=== PATIENT | female | born 1940 | race Caucasian/White ===

== ENCOUNTER 2017-07-25 19:31 | Inpatient (IN) | payer MEDICARE, BC ==
[~2017-07-25] VITALS: Ht 157.5 cm; Wt 50.0 kg
[2017-07-25 21:00] LABS: APPEARANCE,URINE Clear (CLEAR); BILIRUBIN,URINE Negative (NEGATIVE); COLOR,URINE Yellow (YELLOW); GLUCOSE, URINE (UA) Negative (NEGATIVE); KETONES,URINE Negative (NEGATIVE); LEUKOCYTE ESTERASE ,URINE Negative (NEGATIVE); NITRATE,URINE Negative (NEGATIVE); OCCULT BLOOD,URINE Negative (NEGATIVE); PH,URINE 5.5 (5.0-8.0); PROTEIN,URINE Negative (NEGATIVE)
[2017-07-25 21:07] LABS: AMPHET/METH SCREEN,URINE NEGATIVE (NEGATIVE); BARBITURATE SCREEN, URINE NEGATIVE (NEGATIVE); BENZODIAZEPINES SCREEN,URINE NEGATIVE (NEGATIVE); CANNABINOID SCREEN,URINE NEGATIVE (NEGATIVE); COCAINE SCREEN,URINE NEGATIVE (NEGATIVE); OPIATE SCREEN,URINE NEGATIVE (NEGATIVE); PHENCYCLIDINE SCREEN,URINE NEGATIVE (NEGATIVE)
[2017-07-25 21:39] LABS: BASOPHILS % (AUTO) 1.2 % (0.0-5.0); EOSINOPHILS % (AUTO) 4.3 % (0.0-8.0); HEMATOCRIT 32.9 % (36-48); LYMPHOCYTES % (AUTO) 24.2 % (21.0-51.0); MEAN CORPUSCULAR HEMOGLOBIN 32.6 pg (27.0-33.0); MEAN CORPUSCULAR HGB CONC 34.1 g/dL (32.0-36.0); MEAN CORPUSCULAR VOLUME 95.6 fL (79-99); MONOCYTES % (AUTO) 9.8 % (3.0-13.0); NEUTROPHILS % (AUTO) 60.5 % (40.0-77.0); PLATELET COUNT (AUTO) 453 K/uL (130-400); RED BLOOD CELL COUNT(AUTO) 3.44 MIL/uL (4.00-5.50); RED CELL DISTRIBUTION WIDTH 12.8 % (11.0-15.5)
[2017-07-25 21:55] LABS: CREATININE 0.9 mg/dL (0.5-1.5); POTASSIUM 4.4 mmol/L (3.5-5.1)
[2017-07-25 22:08] LABS: ALBUMIN 3.2 g/dL (3.5-5.0); BILIRUBIN,TOTAL 0.4 mg/dL (0.2-1.0); CREATINE KINASE MB 1.2 ng/mL (0.5-3.6); TOTAL PROTEIN, SERUM 6.3 g/dL (6.0-8.3)
[2017-07-25 22:21] LABS: INR 0.97 (0.85-1.15); PARTIAL THROMBOPLASTIN TIME 26.6 SEC (26.3-35.5); PROTHROMBIN TIME 10.2 SEC (9.6-11.6)
[2017-07-25] MEDS ORDERED: ENOXAPARIN SODIUM 60 MG/0.6 ML SQ ONE (23:04)
[2017-07-25] MEDS ORDERED: METOPROLOL TARTRATE 25 MG TAB ONE (23:05)
[2017-07-25] MEDS ORDERED: IOPAMIDOL-370 75 ML VIAL IV ONE (23:25)
[2017-07-26] MEDS ORDERED: ENOXAPARIN SODIUM 60 MG/0.6 ML SQ SCH ×2 (00:15→12:00)
[2017-07-26 01:35] VITALS: BP 151/80
[2017-07-26] MEDS ORDERED: HYDRALAZINE HCL 20 MG/ML VIAL IV PRN (02:00)
[2017-07-26] MEDS ORDERED: POTASSIUM CHLORIDE 20 MEQ ERTAB PO PRN (02:00)
[2017-07-26] MEDS ORDERED: NITROGLYCERIN 1GM/1 INCH PACKET TD SCH ×2 (02:00→09:34)
[2017-07-26] MEDS ORDERED: POTASSIUM CHLORIDE 20MEQ/100ML 100 ML IV PRN (02:00)
[2017-07-26] MEDS ORDERED: LIDOCAINE HCL-MPF 1% 2ML VIAL IVP PRN (02:00)
[2017-07-26] MEDS ORDERED: NITROGLYCERIN 0.4 MG SL TAB SL PRN (02:00)
[2017-07-26] MEDS ORDERED: POTASSIUM CHLORIDE 10% ELIXIR 20 MEQ/15 ML UDCUP PO PRN (02:00)
[2017-07-26] MEDS ORDERED: ACETAMINOPHEN 325 MG TAB PO PRN ×2 (02:00)
[2017-07-26] MEDS ORDERED: ONDANSETRON HCL MDV 20ML 2 MG/ML VIAL IV PRN (02:00)
[2017-07-26] MEDS ORDERED: CITA40TA6 PO (02:31)
[2017-07-26] MEDS ORDERED: ATEN25TA PO (02:31)
[2017-07-26] MEDS ORDERED: SIMV40TA59 PO (02:31)
[2017-07-26] MEDS ORDERED: AMLO5TAB2 PO (02:31)
[2017-07-26] MEDS ORDERED: LOSA50TA37 PO (02:31)
[2017-07-26] MEDS ORDERED: ASPI-1181 PO (02:31)
[2017-07-26] MEDS ORDERED: METO10TA3 PO (02:31)
[2017-07-26] MEDS ORDERED: TRAZ-187 PO (02:31)
[2017-07-26] MEDS ORDERED: LEVO88TA7 PO (02:31)
[2017-07-26] MEDS ORDERED: PANT40TA25 PO (02:31)
[2017-07-26 03:42] VITALS: BP 140/70
[2017-07-26 04:31] LABS: CREATINE KINASE, TOTAL 67 U/L (21-232); MYOGLOBIN 38 ng/mL (10-92); TROPONIN I < 0.04 ng/mL (0.00-0.06)
[2017-07-26 07:00] VITALS: BP 148/48
[2017-07-26] MEDS ORDERED: METOPROLOL TARTRATE 25 MG TAB PO SCH ×2 (09:00)
[2017-07-26] MEDS ORDERED: ASPIRIN 325 MG TABLET PO SCH (09:00)
[2017-07-26] MEDS ORDERED: FAMOTIDINE 20MG TAB 20 MG TAB PO SCH (09:00)
[2017-07-26 10:32] LABS: CREATINE KINASE, TOTAL 59 U/L (21-232); MYOGLOBIN 35 ng/mL (10-92); TROPONIN I < 0.04 ng/mL (0.00-0.06)
[2017-07-26] MEDS ORDERED: ATORVASTATIN CALCIUM 20 MG TABLET PO SCH (21:00)
[2017-07-27] MEDS ORDERED: LEVOTHYROXINE 88 MCG TABLET PO SCH (09:00)
[2017-07-27] MEDS ORDERED: AMLODIPINE BESYLATE 5 MG TAB PO SCH (09:00)
== END 2017-07-26 11:50 | disposition short-term general hospital (02) | DRG 66 ==
LOC: EDH 19:31 → EDHIP 22:35 → 2AH 07-26 01:43
PROVIDERS: ADMIT Family Medicine; ATTEND Family Medicine
DX: I63.9 Cerebral infarction, unspecified (principal); I48.91 Unspecified atrial fibrillation; E78.5 Hyperlipidemia, unspecified; I10 Essential (primary) hypertension; F17.210 Nicotine dependence, cigarettes, uncomplicated; I25.10 Atherosclerotic heart disease of native coronary artery without angina pectoris; Z79.82 Long term (current) use of aspirin; Z90.710 Acquired absence of both cervix and uterus; Z95.5 Presence of coronary angioplasty implant and graft; Z98.84 Bariatric surgery status; Z88.8 Allergy status to other drugs, medicaments and biological substances
CPT/HCPCS: 36415; 70450; 70496; 70544; 70551; 80053; 80305; 81003; 82140; 82550; 82553; 83874; 84443; 84484; 85025; 85610; 85730; 93005; 93880; J1650; Q9967

== ENCOUNTER → 2018-04-02 | Outpatient (CLI) | payer MEDICARE ==
[~2018-04-02] MED LIST: AMLO5TAB7 PO; ASPI-1181 PO; ATEN25TA PO; CITA40TA6 PO; LEVO88TA7 PO; LOSA50TA25 PO; METO10TA3 PO; PANT40TA25 PO; SIMV40TA59 PO; TRAZ-187 PO
== END | disposition home or self-care (01) ==
LOC: SHCH 14:23
PROVIDERS: ATTEND Internal Medicine Cardiovascular Disease
DX: I73.9 Peripheral vascular disease, unspecified (principal)
CPT/HCPCS: 93922